=== PATIENT | female | born 1995 | race Caucasian/White ===

== ENCOUNTER 2025-07-04 20:53 | Emergency (ER) | payer SELFPAY ==
[2025-07-04 20:57] VITALS: BP 139/77; PULSE 100; RESP 20; TEMP 36.8; O2SAT 97; BMI 28.8
[2025-07-04 22:00] LABS: MANUAL DIFF FLAG NO
[2025-07-04 22:02] LABS: Appearance Urine Clear; Glucose Urine UA Negative (Negative); PH 5.5 (5.0-9.0); Specific Gravity - Urine 1.025 (1.005-1.025); UMIC TRIGGER UACC YES
[2025-07-04 22:03] LABS: Hematocrit 40.7 % (37.0-47.0); Hemoglobin 13.8 g/dl (12.0-16.0); Imm Gran Abs Auto 0.03 X10*3/uL (0.00-0.03); Imm Gran Pct Auto 0.4 % (0.0-0.4); Lymphocytes Absolute Auto 1.6 X10*3/uL (1.2-4.9); Mean Corpuscular HGB Conc 33.9 g/dl (31.0-35.0); Mean Corpuscular Hemoglobin 29.2 pg (27.0-33.0); Mean Corpuscular Volume 86.0 fL (80.0-98.0); NRBC Abs Auto 0.000 X10*3/uL (0.0-0.012); NRBC Pct Auto 0.0 /100WBC (0.0-0.2); Platelet Count 277 X10*3/uL (160-400); Red Blood Count 4.73 X10*6/uL (4.20-5.50); White Blood Count 8.0 X10*3/uL (4.8-10.8)
[2025-07-04 22:15] LABS: Alanine Aminotransferase 11 U/L (0-31); Albumin Level 4.6 g/dL (3.5-5.0); Alkaline Phosphatase 63 U/L (39-117); Anion Gap 13 (12-20); Aspartate Amino Transferase 19 U/L (5-31); Blood Urea Nitrogen 20 mg/dL (9-16); Calcium 9.1 mg/dL (8.4-10.2); Carbon Dioxide 24 mmol/L (22-29); Chloride 107 mmol/L (96-108); Creatinine Clr Calc Pharmacy 95.0; Estimated Glomerular Filt Rate > 60; Lipase 22 U/L (8-78); Potassium 4.0 mmol/L (3.3-5.1); Sodium 140 mmol/L (135-145); Total Protein 7.7 g/dL (6.5-8.0)
[2025-07-05] VITALS: BP 107/81; PULSE 87; RESP 16; TEMP 37; O2SAT 96
--- NOTE | 2025-07-05 00:41 | ED_ITS ---
HPI - Abdominal Pain General Chief Complaint: Abdominal Pain Stated Complaint: vomitting blood Time Seen by Provider: 07/05/25 00:41 Source: patient Mode of arrival: ambulatory Limitations: no limitations History of Present Illness ED Provider: Sai DRUMMOND HPI narrative: The patient is a 30-year-old female presenting to the ED for evaluation of a single episode of vomiting this evening with specks of bright red blood. The patient reports for the past 2-3 weeks she has been experiencing epigastric abdominal discomfort described as a gnawing/pulling sensation with associated poor appetite, early satiety, and nausea. The patient reports symptoms became so severe approximately 3 weeks ago she experienced near-syncope, however symptoms improved and she did not seek medical care at that time. The patient reports today she woke with persistent mild epigastric pain and nausea, patient ate a meal at approximately 17:00 with a [place] spice, patient reports at approximately 20:30 she suffered severe nausea with 1 episode of dry heaving followed by vomiting a small amount (fist-sized) of vomit with the associated 4- 5 specks of bright red blood. The patient denies recurrent vomiting, denies associated fever/chills, chest pain, shortness of breath, cough, hemoptysis, dysuria, hematuria, hematochezia, or melena. The patient reports she is currently menstruating, as expected, reports flow is consistent with her baseline. The patient denies surgical abdominal history. Related Data Previous Rx's ?Medication ?Instructions ?Recorded famotidine 20 mg tablet (Pepcid) 20 mg PO BID #28 tabs 07/05/25 omeprazole 20 mg capsule,delayed 20 mg PO DAILY #14 ca ps 07/05/25 release Allergies Allergy/AdvReac Type Severity Reaction Status Date / Time No Known Allergies Allergy Verified 07/04/25 21:00 Review of Systems Review of Systems Yes all other systems are reviewed and are negative PMFSH Social History Social History Advance Directives: No Advance Directives Information Provided: Yes Do you have a plan to hurt others: No Plan Physical Exam ED Exam Exam: CONSTITUTIONAL: The patient appears non-toxic, well nourished and in no acute distress. Vital signs as documented. HEAD: Atraumatic, normocephalic. EYES: EOMs grossly intact, pupils equal, conjunctiva clear, no exudate. ENT: Nares patent, no discharge. Airway patent, no audible stridor, visible mucosa is pink and moist without noted lesions. NECK: Trachea is midline, no obvious masses or gross abnormalities. CHEST: Symmetric movement, normal appearance. LUNGS: LS present and CTAB, no w/r/r. Non-labored work of breathing. CARDIAC: Regular Rhythm, S1/S2 appreciated, no murmurs, rubs or gallops. ABDOMEN: Abdomen soft and non-tender x4 quadrants, patient reports mild epigastric tenderness, negative rebound, no palpable masses or organomegaly. : Deferred. EXTREMITIES: Normal tone, moves all extremities spontaneously without reported pain. No obvious acute injury or deformity noted. NEURO: Alert and oriented x3, CN II-XII appear grossly intact. Cerebellar Functioning grossly intact. No obvious sensory or motor deficits. Speech clear and appropriate. PSYCH: normal affect, appropriate eye contact, fluid speech, with appropriate response to questioning. No reported suicidality or homicidality. SKIN: Warm, dry, color appropriate, normal turgor. No rashes noted. Vital Signs: Vital Signs - 24 hr 07/04/25 20:57 07/05/25 00:00 Temperature 98.2 F 98.6 F Pulse Rate 100 87 Respiratory Rate 20 16 Blood Pressure 139/77 107/81 Pulse Oximetry 97 96 Oxygen Delivery Method Room Air Room Air BMI result Body Mass Index 28.8 Medical Decision Making Medical Decision Making MDM Narrative: 1:53 AM 07/05/2025 (Alex DRUMMOND): The patient is a 30-year-old female presenting to the ED for evaluation of a single episode of vomiting this evening with specks of bright red blood. The patient reports for the past 2-3 weeks she has been experiencing epigastric abdominal discomfort described as a gnawing/pulling sensation with associated poor appetite, early satiety, and nausea. The patient in the ED is well-appearing, afebrile, no tachycardia, hypoxia, or hypotension. The patient's exam reveals mild epigastric tenderness, negative rebound. Laboratory evaluation shows no leukocytosis, anemia, electrolyte abnormality, or BRADY. LFTs are unremarkable. Lipase is normal. Patient's urinalysis shows blood consistent with current menstruation, no other acute findings. The patient's presentation is most consistent with likely gastritis, we will treat with education regarding diet changes, as well as 2 weeks of omeprazole and Pepcid. Patient has been advised to follow up with PCP for GI referral to consider testing for H pylori. Patient has been educated on reasons to return. Admission/Observation Consideration of admission/observation: Escalation of care including admission/observation considered Lab Data MDM Lab Attestation statement: I reviewed the patient's lab results. 07/04/25 21:55 07/04/25 21:55 Labs: Lab Results 07/04/25 Range/Units 21:55 WBC 8.0 (4.8-10.8) X10*3/uL RBC 4.73 (4.20-5.50) X10*6/uL Hgb 13.8 (12.0-16.0) g/dl Hct 40.7 (37.0-47.0) % MCV 86.0 (80.0-98.0) fL MCH 29.2 (27.0-33.0) pg MCHC 33.9 (31.0-35.0) g/dl RDW 13.2 (11.0-16.0) % Plt Count 277 (160-400) X10*3/uL MPV 9.5 (9.4-12.3) fL Immature Gran % (Auto) 0.4 (0.0-0.4) % Neut % (Auto) 71.9 (45-73) % Lymph % (Auto) 19.9 L (20-40) % [place] % (Auto) 6.1 (2-11) % Eos % (Auto) 1.3 (0-4) % Baso % (Auto) 0.4 (0-2) % Lymph # (Auto) 1.6 (1.2-4.9) X10*3/uL [place] # (Auto) 0.5 (0.1-1.2) X10*3/uL Eos # (Auto) 0.1 (0.0-0.4) X10*3/uL Baso # (Auto) 0.0 (0.0-0.2) X10*3/uL Abs Immat Gran (auto) 0.03 (0.00-0.03) X10*3/uL Absolute Neuts (auto) 5.8 (2.0-8.3) x10*3/uL Absolute Nucleated RBC 0.000 (0.0-0.012) X10*3/uL Nucleated RBC % (auto) 0.0 (0.0-0.2) /100WBC Sodium 140 (135-145) mmol/L Potassium 4.0 (3.3-5.1) mmol/L Chloride 107 (96-108) mmol/L Carbon Dioxide 24 (22-29) mmol/L Anion Gap 13 (12-20) BUN 20 H (9-16) mg/dL Creatinine 0.88 (0.5-1.4) mg/dL Estim Creat Clear Calc 95.0 Estimated GFR > 60 Random Glucose 98 (60-115) mg/dL Calcium 9.1 (8.4-10.2) mg/dL Total Bilirubin 0.4 (0.0-1.0) mg/dL Direct Bilirubin 0.2 (0.0-0.5) mg/dL AST 19 (5-31) U/L ALT 11 (0-31) U/L Alkaline Phosphatase 63 (39-117) U/L Total Protein 7.7 (6.5-8.0) g/dL Albumin 4.6 (3.5-5.0) g/dL Lipase 22 (8-78) U/L Urine Color Yellow Urine Appearance Clear Urine pH 5.5 (5.0-9.0) Ur Specific Carrier 1.025 (1.005-1.025) Urine Protein Negative (Neg-Trace) mg/dL Urine Glucose (UA) Negative (Negative) mg/dL Urine Ketones Negative (Negative) mg/dL Urine Blood Large (3+) H (Negative) Urine Nitrite Negative (Negative) Ur Leukocyte Esterase Negative (Negative) Urine RBC 11-20 H (0-2) /HPF Urine WBC 0-5 (0-5) /HPF Ur Squamous Epith Cells 3-5 (0-2) /HPF Urine Bacteria None Seen (None Seen) Hyaline Casts 0-2 (0-2) /LPF Tests considered The following testing was considered but not selected: CT Abd and Pelvis Prescription Management I considered prescription management with: Pain Medication and Antibiotic Discharge Plan Discharge Clinical Impression: Gastritis Qualifiers: Gastritis type: other gastritis Chronicity: acute Gastritis bleeding: with bleeding Qualified Code(s): K29.01 - Acute gastritis with bleeding Patient Disposition: Home, Self-Care Instructions: Gastritis (ED), H Pylori (Helicobacter Pylori) Infection (ED), Diet for Stomach Ulcers and Gastritis (ED) Additional Instructions: Thank you for choosing [facility]'s Emergency Department for your care today. Thankfully your laboratory evaluation today shows no evidence of acute infection, anemia, electrolyte abnormality, or impaired renal function. Your liver function is also normal and your urinalysis shows no evidence of infection. At this time there is no indication for admission to the hospital or continued ED observation, and it is safe to discharge you home. Your episode of vomiting today with specks/streaks of bright red blood, may be due to worsening inflammation of your stomach, a condition known as gastritis. This is a over production of acid which can either way your stomach lining causing inflammation and bleeding. This can lead to pain, nausea, poor appetite, early fullness when eating, bleeding, and vomiting. Please avoid eating spicy or other acidic foods such as chocolate, tomato based products, coffee, and alcohol. Please take omeprazole and Pepcid as prescribed for the next 2 weeks. Is extremely important that you follow up with your primary care provider for re- evaluation and referral to a GI physician as indicated to consider additional testing such as an endoscopy or other testing to look for a bacterial infection of your stomach which can make these symptoms more severe. If you do not have a primary care physician, please call the [facility] at [phone] to establish a new primary care physician. While waiting to establish your new primary care physician, you can call our [facility] at [phone] for non-emergency needs. Please return to the emergency department if you develop a severe or sudden change in your symptoms, profuse or recurrent bloody vomiting of bright red or coffee-ground vomit, dark black tarry stools, a fever over 100.4 that does not improve with Tylenol or Ibuprofen, severe abdominal pain, or any other new or worsening symptoms or concerns. Prescriptions: New famotidine [Pepcid] 20 mg tablet 20 mg PO BID Qty: 28 0RF omeprazole 20 mg capsule,delayed release(DR/EC) 20 mg PO DAILY Qty: 14 0RF Referrals: Physician,Unknown J [Primary Care Provider, Medical] Clinical Impression: Gastritis Print Language: Italian
[2025-07-05 02:00] VITALS: BP 119/79; PULSE 78; RESP 18; TEMP 36.2; O2SAT 99
--- NOTE | 2025-07-05 02:09 | PC.NURSE ---
reviewed discharge instructions with pt. pt verbalized understanding, no sign of distress.
[2025-07-05 02:10] VITALS: BP 119/79; PULSE 78; RESP 18; TEMP 36.2; O2SAT 99
== END 2025-07-05 02:10 | disposition home or self-care (01) ==
PROVIDERS: Emergency Provider Emergency Medicine
DX: K29.01 Acute gastritis with bleeding (principal); R11.10 Vomiting, unspecified; R10.13 Epigastric pain
CPT/HCPCS: 36415; 80048; 80076; 81001; 81003; 83690; 85025; 99283; 99284